=== PATIENT | male | born 2000 | race Caucasian/White ===

== ENCOUNTER 2019-06-12 20:36 | Emergency (ER) | payer BC ==
[2019-06-12 20:48] VITALS: BP 147/75
--- NOTE | 2019-06-12 21:38 | UC ---
Throat Pain/Nasal George HPI - HPI Summary HPI Summary: 2 DAYS OF SORE THROAT, PAIN WITH SWALLOWING, AND LARGE TONSILS. STATES HE GETS STREP THROAT FREQUENTLY. ALSO COMPLAINING OF COUGH AND CONGESTION AND MILD EAR PAIN. FEVER TMAX 102.5. FOLLOWS WITH ENT IN [place]. - History of Current Complaint Chief Complaint: UCRespiratory Stated Complaint: CONGESTION, COUGH Time Seen by Provider: 06/12/19 21:29 Hx Obtained From: Patient Onset/Duration: Gradual Onset, Lasting Days, Still Present Severity: Moderate Pain Intensity: 0 Pain Scale Used: 0-10 Numeric Cough: Nonproductive Associated Signs & Symptoms: Positive: Fever - Allergies/Home Medications Allergies/Adverse Reactions: Allergies Allergy/AdvReac Type Severity Reaction Status Date / Time No Known Allergies Allergy Verified 06/12/19 20:48 PMH/Surg Hx/FS Hx/Imm Hx Previously Healthy: Yes - Surgical History Surgical History: None - Family History Known Family History: Positive: Non-Contributory - Social History Alcohol Use: Occasionally Substance Use Type: None Smoking Status (MU): Never Smoked Tobacco Review of Systems All Other Systems Reviewed And Are Negative: Yes Constitutional: Positive: Fever, Chills, Fatigue ENT: Positive: Sore Throat, Nasal Discharge, Sinus Congestion Respiratory: Positive: Cough Cardiovascular: Positive: Negative Gastrointestinal: Positive: Negative Genitourinary: Positive: Negative Physical Exam Triage Information Reviewed: Yes Appearance: Well-Appearing, No Pain Distress, Well-Nourished Vital Signs: Initial Vital Signs Temp 97.5 F 06/12/19 20:45 Pulse 126 06/12/19 20:45 Resp 16 06/12/19 20:45 BP 147/75 06/12/19 20:45 Pulse Ox 97 06/12/19 20:45 Laboratory Tests 06/12/19 21:39 Group A Strep Rapid Negative Vital Signs Reviewed: Yes Eyes: Positive: Conjunctiva Clear ENT: Positive: Hearing grossly normal, Pharyngeal erythema, TMs normal, Tonsillar swelling, Tonsillar exudate Neck: Positive: Supple, Nontender, No Lymphadenopathy Respiratory Exam: Normal Cardiovascular: Positive: Tachycardia Abdomen Description: Positive: Soft Musculoskeletal: Positive: No Edema Neurological: Positive: Alert Psychological: Positive: Age Appropriate Behavior Skin: Negative: Rashes Throat Pain/Nasal Course/Dx - Course Course Of Treatment: DESPITE NEG STREP TEST, GIVEN PATIENT'S HISTORY OF FREQUENT STREP THROAT AND MILD RIGHT OTITIS MEDIA WILL GO AHEAD AND COVER WITH AMOXICILLIN TWICE DAILY FOR [address] FOLLOW-UP WITH COURT NO HELP IF NOT IMPROVING EXPECTED. - Differential Dx/Diagnosis Provider Diagnosis: Acute tonsillitis, Right otitis media Discharge ED - Sign-Out/Discharge Documenting (check all that apply): Patient Departure All imaging exams completed and their final reports reviewed: No Studies - Discharge Plan Condition: Stable Disposition: HOME Prescriptions: Amoxicillin PO (*) [Amoxicillin 500 MG CAP*] 1,000 mg PO Q12H #36 cap predniSONE TAB* [Deltasone TAB*] 50 mg PO DAILY #4 tab Patient Education Materials: Pharyngitis (ED), Ear Infection (ED) Referrals: [facility] [Provider Group] - If Needed Additional Instructions: STREP TEST NEGATIVE. GIVEN YOUR CLINICAL PRESENTATION ALONG WITH YOUR MILD RIGHT OTITIS MEDIA WILL GO AHEAD AND COVER WITH AMOXICILLIN TWICE DAILY FOR 10 DAYS. TAKE ANTIBIOTICS FOR THE FULL 10 DAYS. STAY WELL HYDRATED. OTC MEDICATIONS NEEDED FOR DISCOMFORT. PREDNISONE TO HELP WITH SWELLING AND INFLAMMATION. FOLLOW-UP WITH [facility] IF YOU'RE NOT IMPROVING EXPECTED. FOLLOW-UP WITH YOUR ENT BACK UP IN [place] NEEDED. - Billing Disposition and Condition Condition: STABLE Disposition: Home
[2019-06-12] MEDS ORDERED: Amoxicillin PO (*) 500 MG CAP PO ONE ×2 (22:25→22:29)
== END 2019-06-12 22:43 | disposition home or self-care (01) ==
LOC: UCEAST 20:36
DX: J03.90 Acute tonsillitis, unspecified (principal); H66.91 Otitis media, unspecified, right ear; J34.89 Other specified disorders of nose and nasal sinuses; R53.83 Other fatigue
CPT/HCPCS: 87651; 99203; A9270-GY; G0463; J7512